=== PATIENT | female | born 1995 | race Native Hawaiian/Other Pacific Islander ===

== ENCOUNTER 2018-12-31 20:38 | Emergency (ER) | payer OTHER ==
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
[2018-12-31] MEDS ORDERED: TYLENOL PO ONE (22:05)
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
[2019-01-01] MEDS ORDERED: FLEXERIL PO ONE (02:40)
[2019-01-01] MEDS ORDERED: ULTRAM PO ONE (02:40)
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
[2019-01-01 03:31] VITALS: BP 132/93
== END 2019-01-01 03:11 | disposition home or self-care (01) ==
LOC: ED 20:38
DX: S46.912A Strain of unspecified muscle, fascia and tendon at shoulder and upper arm level, left arm, initial encounter (principal); S16.1XXA Strain of muscle, fascia and tendon at neck level, initial encounter; Z79.899 Other long term (current) drug therapy; V49.49XA Driver injured in collision with other motor vehicles in traffic accident, initial encounter; Y93.89 Activity, other specified; Y92.89 Other specified places as the place of occurrence of the external cause; Y99.8 Other external cause status
CPT/HCPCS: 72040